=== PATIENT | male | born 1955 | race Caucasian/White ===

== ENCOUNTER 2016-10-03 15:07 | Emergency (ER) | payer OTHER ==
[~2016-10-03] VITALS: Ht 180.3 cm; Wt 117.9 kg
[~2016-10-03 15:07] MED LIST: AMOXICILLIN500 M2 PO; AMOXIL500 MG PO; ATORVASTATIN CA20 M1; BACTRIM DS 8001 TAB PO; BACTRIM DS TAB1 EACH PO; BUPRENORPHIN-N1 EACH SL; CLONAZEPAM0.5 M2 PO; KEFLEX500 MG PO; ROBITUSSIN W/CO10 ML PO; SUBOXONE 8 MG-21 TAB SL
[2016-10-03 15:50] LABS: ABSOLUTE BASOPHIL COUNT 0 /CUMM (0.0-0.2); ABSOLUTE EOSINOPHIL COUNT 0.9 /CUMM (0.0-0.7); ABSOLUTE GRANULOCYTE CT 9.8 /CUMM (1.4-6.5); ABSOLUTE MONOCYTE COUNT 0.7 /CUMM (0.10-0.60); BASOPHIL % 0 % (0.0-2.0); EOSINOPHIL % 7.5 % (0-5); HEMATOCRIT 38.8 % (42-52); MEAN CORPUSCULAR HGB CONC 33.8 G/DL (33.0-37.0); MEAN CORPUSCULAR VOLUME 100.5 FL (80.0-94.0); MEAN PLATELET VOLUME 8.4 FL (7.4-10.4); PLATELET COUNT 171 /CUMM (130-400); RED BLOOD CELL CT 3.86 /CUMM (4.70-6.10); WHITE BLOOD CELL COUNT 12.5 /CUMM (4.8-10.8)
[2016-10-03 15:53] LABS: GRANULOCYTE % 78.5 % (42.2-75.2)
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
[2016-10-03] MEDS ORDERED: ATORVASTATIN CA10 M1 PO (16:42)
--- NOTE | 2016-10-03 16:59 | RADIOLOGY REPORT ---
EXAMINATION: CHEST 2 VIEWS CLINICAL INFORMATION: Cough, shortness of breath. COMPARISON: 07/02/2015. TECHNIQUE: PA and lateral views of the chest were obtained. FINDINGS: The cardiac silhouette is not enlarged. The mediastinal and hilar contours are unremarkable. There are neither pleural effusions nor pneumothoraces. There is accentuation of interstitial markings present within the left lung. There are no consolidations. The osseous structures are unremarkable. IMPRESSION: No consolidations. Mild accentuation to interstitial markings within the left lung which could be slightly accentuated due to patient rotation.
[2016-10-03] MEDS ORDERED: AUGMENTIN 875-1 EACH PO (17:41)
[2016-10-03] MEDS ORDERED: PREDNISONE10 M2 PO (17:41)
[2016-10-03] MEDS ORDERED: PROAIR HFA8.5 GM INH (17:41)
[2016-10-03 19:12] VITALS: BP 112/70
== END 2016-10-03 19:12 ==
LOC: ERH 15:07
PROVIDERS: Emergency Medicine
DX: J44.1 Chronic obstructive pulmonary disease with (acute) exacerbation (principal); Z72.0 Tobacco use
CPT/HCPCS: 1263; 93005; 93010; J3490